=== PATIENT | male | born 1965 | race Caucasian/White ===

== ENCOUNTER 2016-10-10 07:49 | Emergency (ER) | payer OTHER ==
[2016-10-10 07:52] VITALS: BP 148/99; PULSE 85; RESP 20; TEMP 97.3
--- NOTE | 2016-10-10 08:15 | ED ---
General Adult HPI - General Chief complaint: ENT Stated complaint: throat pain Time Seen by Provider: 10/10/16 08:08 Source: patient, RN notes reviewed Mode of arrival: ambulatory Limitations: no limitations - History of Present Illness Initial comments: Patient is a 51-year-old male who presents emergency room today with a chief complaint of sore throat 3 days. Patient does admit that hurts when he swallows. He states he has felt somewhat run down when he is finding something off. Patient denies any other complaints or associated symptoms. Patient denies any recent fever, chills, shortness of breath, chest pain, back pain, abdominal pain, nausea or vomiting, numbness or tingling, dysuria or hematuria, constipation or diarrhea, headaches or visual changes, or any other complaints. - Related Data Previous Rx's Medication Instructions Recorded Cephalexin [Keflex] 500 mg PO Q6HR #20 cap 09/28/15 predniSONE 20 mg PO DAILY #3 tab 09/28/15 Allergies Allergy/AdvReac Type Severity Reaction Status Date / Time diclofenac potassium Allergy Itching Verified 10/10/16 07:52 [From Cataflam] Review of Systems ROS Statement: Those systems with pertinent positive or pertinent negative responses have been documented in the HPI. ROS Other: All systems not noted in ROS Statement are negative. Past Medical History Past Medical History: No Reported History History of Any Multi-Drug Resistant Organisms: None Reported Past Surgical History: Orthopedic Surgery Past Psychological History: No Psychological Hx Reported Smoking Status: Former smoker Past Alcohol Use History: Occasional Past Drug Use History: None Reported General Exam - General Exam Comments Initial Comments: General: The patient is awake and alert, in no distress, and does not appear acutely ill. Eye: Pupils are equal, round and reactive to light, extra-ocular movements are intact. No nystagmus. There is normal conjunctiva bilaterally. No signs of icterus. Ears, nose, mouth and throat: There are moist mucous membranes and no oral lesions. Increased redness erythema to the posterior pharynx. Uvula midline. Patient swallows without any difficulty. Neck: The neck is supple, there is no tenderness or JVD. Cardiovascular: There is a regular rate and rhythm. No murmur, rub or gallop is appreciated. Respiratory: Lungs are clear to auscultation, respirations are non-labored, breath sounds are equal. No wheezes, stridor, rales, or rhonchi. Musculoskeletal: Normal ROM, no tenderness. Strength 5/5. Sensation intact. Pulses equal bilaterally 2+. Neurological: A&O x 3. CN II-XII intact, There are no obvious motor or sensory deficits. Coordination appears grossly intact. Speech is normal. Skin: Skin is warm and dry and no rashes or lesions are noted. Psychiatric: Cooperative, appropriate mood & affect, normal judgment. Limitations: no limitations Course Vital Signs 10/10/16 07:51 Temperature 97.3 F L Pulse Rate 85 Respiratory 20 Rate Blood Pressure 148/99 O2 Sat by Pulse 96 Oximetry Medical Decision Making - Medical Decision Making Patient reexamined at this time shows no signs of distress. Resting comfortably in stretcher. His strep test is negative. Patient will be given a prescription for magic mouthwash for his symptoms. Advised follow-up family doctor return to emergency room if any symptoms increase or worsen. - Lab Data Lab Results 10/10/16 Range/Units 08:15 Group A Strep Rapid Negative (Negative) Disposition Clinical Impression: Acute pharyngitis Disposition: HOME SELF-CARE Condition: Good Instructions: Pharyngitis (ED) Additional Instructions: Please use medication as discussed. Please follow-up with family doctor in the next 2 days of symptoms have not improved. Please return to emergency room if the symptoms increase or worsen or for any other concerns. Referrals: Vasyl Greenberg DO [Primary Care Provider] - 1-2 days Time of Disposition: 08:55
== END 2016-10-10 09:08 | disposition home or self-care (01) ==
LOC: EC 07:49
DX: J02.9 Acute pharyngitis, unspecified (principal); Z87.891 Personal history of nicotine dependence; Z88.8 Allergy status to other drugs, medicaments and biological substances
CPT/HCPCS: 87081; 87430; 99283

== ENCOUNTER → 2016-11-04 | Outpatient (CLI) | payer OTHER ==
--- NOTE | 2016-11-04 11:24 | NM ---
EXAMINATION TYPE: NM stress cardiolite complete DATE OF EXAM: 11/04/2016 COMPARISON: 01/16/2010 HISTORY: TECHNIQUE: After the intravenous administration of 10.9 mCi Tc 99m Sestamibi - Rest images obtained 45 minutes post injection. The patient exercised using a JOSHUA protocol and 1 minute prior to peak exercise was injected with 30.0 mCi Tc 99m Sestamibi - Stress images obtained 30 minutes post injecti on. FINDINGS: Targeted heart rate was achieved during performance of the study. Review of stress and rest SPECT benito ges fixed defect involving the inferior wall the myocardium with associated wall motion abnormality. Gated analysis shows normal wall motion with an estimated left ventricular ejection fraction of 24 %. IMPRESSION: 1. Ejection fraction is 24% correlate clinically. 2. Findings suggest a fixed defect involving the inferior wall and anteroseptal portions of the myoca rdium.
--- NOTE | 2016-11-04 13:59 | EST ---
EXERCISE STRESS AGE:: 51 SEX:: M HT:: 6'3" WT:: 255 PROTOCOL:: CARDIOLITE STRESS TEST STAGE:: 3 DURATION OF EXERCISE:: 6:40 HEART RATE REST:: 101 BLOOD PRESSURE REST:: 133/78 MAXIMUM HEART RATE ACHIEVED:: 147 MAXIMUM BLOOD PRESSURE:: 195/76 85% MPHR:: 144 100% MPHR:: 169 METS:: 8.1 INDICATIONS:: Abnormal EKG. CLINICAL INFORMATION:: Baseline EKG revealed a sinus mechanism with short CO and possible WPW type picture with some IVCD. There was also nonspecific ST abnormality. Patient walked on a standard Wesley protocol for 6 minutes 40 seconds, achieved a maximal heart rate of 147 beats per minute which is more than 85% of predicted maximal. He developed fatigue, shortness of breath and discomfort in his knee but did not have angina. Patient continued to have the same appearance of the EKG. QRS remained wide, the CO. interval remained short and rare PVCs were noted. He did not have any angina and EKG remained inconclusive. By EKG criteria, this is an inconclusive stress test with limited exercise capacity. There were resting EKG changes to begin with making it an inconclusive stress test. If ischemia is suspected, he will probably benefit from a Lexiscan stress test. MMODL / IJN: [id number] /
== END | disposition home or self-care (01) ==
LOC: RADNMMAIN 08:53
PROVIDERS: ATTEND Family Medicine
DX: R94.31 Abnormal electrocardiogram [ECG] [EKG] (principal)
CPT/HCPCS: 93017; 78452; A9500

== ENCOUNTER → 2017-11-21 | Outpatient (CLI) | payer OTHER ==
--- NOTE | 2017-11-21 18:33 | XR ---
EXAMINATION TYPE: XR knee complete RT DATE OF EXAM: 11/21/2017 COMPARISON: 12/07/2010 HISTORY: Knee pain TECHNIQUE: 3 views FINDINGS: There is narrowing of the medial joint space. There is moderate spurring of the femoral and tibial condyles. There is spurring of the patella. There is no sign of joint effusion. IMPRESSION: Moderate osteoarthritis in the medial joint space with progression of joint space narrowi ng compared to old exam. No fracture.
== END | disposition home or self-care (01) ==
LOC: RADXRYALE 16:24
PROVIDERS: ATTEND Family Medicine
DX: M17.11 Unilateral primary osteoarthritis, right knee (principal); M25.861 Other specified joint disorders, right knee

== ENCOUNTER → 2019-04-27 | Outpatient (CLI) | payer OTHER ==
--- NOTE | 2019-04-27 15:12 | XR ---
EXAMINATION TYPE: XR chest 2V DATE OF EXAM: 04/27/2019 COMPARISON: Prior chest x-ray 02/05/2010, chest CT 09/24/2011 HISTORY: Redness of breath and cough TECHNIQUE: Frontal and lateral views of the chest are obtained. FINDINGS: Oval density with some central lucencies over the right lung apex thought to be anterior t o the chest cavity on the lateral view and may be artifact. No evident airspace disease, pneumothorax , or pleural effusion. There is thoracic spondylosis. Cardiomediastinal silhouette, pulmonary vascula rity and gelacio within normal limits. IMPRESSION: Suspect artifact is present. No acute cardiopulmonary disease.
== END | disposition home or self-care (01) ==
LOC: RADXRYALE 14:12
PROVIDERS: ATTEND Physician Assistant
DX: R05 Cough (principal); R06.02 Shortness of breath
CPT/HCPCS: 71046

== ENCOUNTER → 2020-03-12 | Outpatient (CLI) | payer OTHER ==
--- NOTE | 2020-03-12 09:22 | MR ---
EXAMINATION TYPE: MR knee RT wo con DATE OF EXAM: 03/12/2020 COMPARISON: X-ray 11/21/2017 HISTORY: Rt knee pain TECHNIQUE: Multiplanar, multisequence imaging of the right knee is performed without IV contrast. FINDINGS: There is near complete loss of joint space involving the medial compartment of knee joint with hypert rophic spurring. Similar findings involving the patellofemoral joint. There is pseudoextrusion of the medial meniscus with abnormal grade 3 signal compatible with tear involving the medial meniscus and body. There is loss of articular cartilage involving the articular tibia and medial femoral component as well as the patellofemoral joint compatible with grade III chondromalacia. There is a mixed signal structure in the soft tissues posterior to the medial femur measuring 2.1 x 1 .5 x 3.5 cm. There is intrasubstance signal seen in the anterior horn lateral meniscus most typical of myxoid dege neration marrow signal alteration involving the medial and lateral femur likely reactive and post art hritic. Patellar and quadriceps tendons intact. Small amount of fluid in the suprapatellar bursa with punctat e areas of high signal may be on the basis of tiny loose bodies. There appears to be tear of the anterior cruciate ligament. Posterior cruciate ligament intact. Grade 1 strain of the MCL. Lateral collateral ligament intact. IMPRESSION: 1. Severe osteoarthritis with the grade 3 chondromalacia involving the medial compartment of the knee joint and patellofemoral joint. 2. Pseudoextrusion of the medial meniscus with grade 1 MCL strain and complex posterior horn and body medial meniscal tear 3. ACL tear. 4. There is a mixed signal 2.1 x 3.5 cm soft tissue nodule along the medial femur posteriorly. No cor responding x-ray findings seen on the x-ray of 11/21/2017. Complicated popliteal fossa cyst containing loose bodies is the most likely etiology.
== END | disposition home or self-care (01) ==
LOC: RADMRIMAIN 08:07
PROVIDERS: ATTEND Physician Assistant
DX: S83.231A Complex tear of medial meniscus, current injury, right knee, initial encounter (principal); S83.512A Sprain of anterior cruciate ligament of left knee, initial encounter; M17.11 Unilateral primary osteoarthritis, right knee; M22.41 Chondromalacia patellae, right knee

== ENCOUNTER → 2021-01-30 | Outpatient (CLI) | payer OTHER | END | disposition home or self-care (01) | LOC: LABWHC1 16:00 | PROVIDERS: ATTEND Orthopaedic Surgery | DX: Z01.812 Encounter for preprocedural laboratory examination (principal) | CPT/HCPCS: 87070 ==

== ENCOUNTER 2021-02-09 05:36 | Day surgery (SDC) | payer OTHER ==
[2021-02-04 11:12] VITALS: BMI 30.6
[~2021-02-09 05:36] MED LIST: ACETAMINOPHEN TAB 500 MG TAB PO PRN; GABAPENTIN 300 MG CAP PO PRN; MELOXICAM 7.5 MG TAB PO PRN; TRANEXAMIC ACID 1,000 MG in SODIUM CHLORIDE 0.9% 100 ML IVPB PRN
[2021-02-09] MEDS ORDERED: LACTATED RINGERS 1,000 ML IV SCH (05:49)
[2021-02-09] MEDS ORDERED: ONDANSETRON 4 MG/2 ML VIAL IVP ONE (05:49)
[2021-02-09] MEDS ORDERED: LIDOCAINE 1% (10MG/ML) FOR IV START INTRADERMA PRN (05:49)
[2021-02-09] MEDS ORDERED: MIDAZOLAM 2 MG/2 ML VIAL IV PRN (05:49)
[2021-02-09] MEDS ORDERED: DEXAMETHASONE SOD PHOSPHATE 4 MG/ML 1 ML VIAL IV ONE (05:49)
[2021-02-09] MEDS ORDERED: fentaNYL (PF) 50 MCG/ML 5 ML AMP IVP ONE (06:47)
[2021-02-09] MEDS ORDERED: MIDAZOLAM 2 MG/2 ML VIAL IVP ONE (06:47)
[2021-02-09] MEDS ORDERED: .fentaNYL (PF) 50 MCG/ML 2 ML AMP ONE (07:00)
[2021-02-09] MEDS ORDERED: TRANEXAMIC ACID 1,000 MG/10 ML VIAL ONE (07:00)
[2021-02-09] MEDS ORDERED: ePHEDrine 50 MG/ML 1 ML AMP ONE (07:00)
[2021-02-09] MEDS ORDERED: MIDAZOLAM 2 MG/2 ML VIAL ONE (07:00)
[2021-02-09] MEDS ORDERED: LIDOCAINE 1% INJ 10MG/ML (20 ML MDV) ONE (07:00)
[2021-02-09] MEDS ORDERED: ROPIVACAINE 5 MG/ML 30 ML VIAL ONE (07:00)
[2021-02-09] MEDS ORDERED: SODIUM CHLORIDE 0.9% 100 ML BAG ONE (07:00)
[2021-02-09] MEDS ORDERED: ROCURONIUM 10 MG/ML (5 ML VIAL) IV ONE (07:00)
[2021-02-09] MEDS ORDERED: SODIUM CHLORIDE 0.9% (PF) 10 ML VIAL ONE (07:00)
[2021-02-09] MEDS ORDERED: PHENYLEPHRINE-0.9% NACL SYG 1,000 MCG/10 ML SYRINGE ONE (07:00)
[2021-02-09] MEDS ORDERED: SUCCINYLCHOLINE CHLORIDE 100 MG/5 ML SYR IV ONE (07:00)
[2021-02-09] MEDS ORDERED: DEXAMETHASONE SOD PHOSPHATE 4 MG/ML 1 ML VIAL ONE (07:00)
[2021-02-09] MEDS ORDERED: PROPOFOL 10 MG/ML 20 ML VIAL IV ONE (07:00)
[2021-02-09] MEDS ORDERED: HYDROmorphone 1 MG/ML 1 ML SYRINGE IVP PRN (07:01)
[2021-02-09] MEDS ORDERED: ONDANSETRON 4 MG/2 ML VIAL IVP PRN (07:01)
[2021-02-09] MEDS ORDERED: HYDROmorphone 0.2 MG/1 ML SYRINGE IVP PRN (07:01)
[2021-02-09] MEDS ORDERED: NALOXONE 0.4 MG/ML 1 ML VIAL IV PRN (07:01)
[2021-02-09] MEDS ORDERED: HYDROmorphone 0.5 MG/0.5 ML SYRINGE IVP PRN (07:01)
[2021-02-09] MEDS ORDERED: HYDROcodone/APAP 7.5-325MG 1 EACH TAB PO PRN ×2 (07:03)
[2021-02-09] MEDS ORDERED: ceFAZolin 1,000 MG in SODIUM CHLORIDE 0.9% 1,000 ML IRRIGATION ONE (07:07)
[2021-02-09] MEDS ORDERED: SODIUM CHLORIDE 0.9% 1,000 ML IV SCH (07:15)
[2021-02-09] MEDS ORDERED: LACTATED RINGERS 1,000 ML IV ONE (08:13)
--- NOTE | 2021-02-09 08:44 | P.OP ---
Date of Procedure: 02/09/21 Preoperative Diagnosis: Severe osteoarthritis right knee Postoperative Diagnosis: Severe osteoarthritis right knee Procedure(s) Performed: Right total knee arthroplasty Implants: James [employer] Nephew Journey II CR Oxinium cruciate retaining femoral component size 7, right [employer] Journey nonporous tibial baseplate size 7, right [employer] Journey II, XLPE CR articular insert, size 9 mm, Size 7-8, right [employer] Journey Nica II resurfacing patellar component, oval, 32 mm All components were cemented using Palacos R bone cement The articulation is Oxinium on polyethylene Anesthesia: GETA Surgeon: Vasyl Tan [employer]inery Set Up Mechanic #1: Celine Lawrence Estimated Blood Loss (ml): 50 Pathology: other (Bone and cartilage) Condition: stable Disposition: PACU Indications for Procedure: After failure of conservative treatment we discussed the surgical and nonsurgical treatment options at length. Patient wishes to proceed with a total knee arthroplasty. Complications specific to this procedure were discussed at length, including but not limited to infection, bleeding, stiffness, and nerve injury. Covid-19 was also discussed at length with the patient, and they are aware of the current policies and procedures. The patient was given the option of delaying surgery, but they elect to proceed knowing these risks. Patient is aware of all these complications and informed consent was obtained Operative Findings: The operative findings are consistent with severe osteoarthritis of the right knee Description of Procedure: Patient was seen in the preoperative area and the consent was reviewed and the operative site was marked with a skin marker. The patient verified the procedure and the operative site. An adductor canal pain catheter was placed by anesthesia in the preoperative area. The patient was then brought to the operating room and given preoperative antibiotics intravenously. A gram of transexamic acid was given intravenously. A general anesthetic was administered by the anesthesia department. A tourniquet was placed on the upper thigh and the lower extremity was prepped with chlorhexidine and draped in usual sterile fashion. A universal timeout was then performed which confirmed the patient's name, surgical site, ALLERGIES, and consent. The lower extremity was then exsanguinated and tourniquet was inflated to 250 mmHg. A standard anterior midline approach to the knee was performed. The skin and subcutaneous tissue were sharply dissected down to the patellar tendon. A medial parapatellar arthrotomy was then performed. The knee was then extended, the patellar was everted, and the knee was again flexed. The infra-patellar fat pad was removed in order to enhance exposure. The anterior horns of both me nisci were excised, and a release was performed to the posterior medial aspect of the knee. On gross visual inspection, there was complete loss of articular cartilage in the medial and patellofemoral joint spaces. There was also significant cartilage damage in the lateral compartment. There were multiple periarticular osteophytes globally about the knee which were then removed with a Ronguer. The femoral canal was then opened with the 9.5 mm intramedullary drill. The 8 mm intramedullary padilla was then inserted into the femoral canal with the distal femoral cutting guide set for 5 of valgus. The distal femoral cutting block was then pinned in place. The intramedullary padilla was then removed, and the distal femur was then cut. The cutting block was then removed and the cut was checked for symmetry. The resected bone was then measured to confirm the appropriate distal femoral resection. Next, the sizing guide was then placed and set for 3 external rotation based off of the epicondylar axis and Whitesides line. Pins were then placed and the drill holes, and the femur was sized with the sizing stylus. The pins were then removed, and the sizing guide was then removed. The spikes of the femoral block was then placed into the predrilled holes, and malleted into place. Two 45 mm pins were then placed into the fixation holes on the cutting block. An thaddeus wing was then used to ensure there would be no notching with the anterior cut. The anterior condyles were cut without notching. The anterior chord cut was then performed, followed by the posterior cut, posterior chamfer cut, and the anterior chamfer cut. The collateral ligaments were protected during the entire process. The cutting block was then removed. Any remaining bone and osteophytes were removed from the femur with a Rominger. The femoral canal was plugged with autologous bone. Attention was then directed to the tibia. The remaining ACL was removed with a Ronguer, and the tibia was then gently subluxed forward with a large bent knee retractor. Any remaining menisci were excised. The posterior lateral corner was cauterized in order to coagulate the lateral geniculate artery. The extra medullary tibial cutting guide was then placed, set for the appropriate rotation, slope, and depth of resection. The proximal tibia cutting guide was then pinned in place. Proximal tibia was then cut and sized. The femoral trial was placed. A narrow saw blade was then used to remove the anterior intracondylar femoral bone. The CR notch trial was then placed. The tibial trial was placed with the appropriate-sized insert. The knee was able to fully extend and flex to 130 and was stable throughout all range of motion. The knee was then extended and the patella was everted. Patella was then measured, and then using an osteotomy guide, the patella was cut at the appropriate level. The patella was then measured and drilled and the patella trial was then placed. The knee was then taken through range of motion with the patella trial and the patella tracked normally using the no thumbs technique.. The knee was then extended patella trial was then removed and the patella was everted. Knee was then flexed and lug holes were drilled through the femoral trial and the femoral trial was then removed. The tibial was then re-exposed, and the tibial broach guide was then pinned in place after it was set for the appropriate rotation to allow for the most coverage without overhang. The tibia was then reamed and broached. The cut surfaces of bone were then irrigated with pulsatile lavage. The knee was also irrigated with Irrisept solution. The components were then opened, the cement was mixed, and the components were then cemented in place. The cement was allowed to harden with the knee in full extension. After the cemented hardened. The tourniquet was released, and hemostasis was obtained. A second gram of transexamic acid was given intravenously. The knee was again irrigated. The knee was again taken through range of motion and found to be stable throughout all range of motion of 0-130, and the patella tracked normally. The fascia was then closed with 0 Vicryl followed by #2 strata fix suture. The subcutaneous tissue was closed with 3-0 Vicryl and 3-0 strata fix. Exofin glue was used for the skin and placed with the knee in flexion. After the glue had dried, and Optafoam silver impregnated dressing was applied. The patient was then transferred to recovery room in stable condition. The executive chef assistant RELL Guillermo was required due the complexity surgery and the need for a skilled surgical clinical reviewer. She assisted in positioning, draping, retraction, and closure of the wound.
[2021-02-09] MEDS ORDERED: ROPIVACAINE 0.2%-NS ON-Q PUMP 1,090 MG, EMPTY PAIN BALL 1 EACH MISCELLANE PRN (08:52)
[2021-02-09 08:57] VITALS: TEMP 97.1
[2021-02-09] MEDS: HYDROmorphone 0.5 MG/0.5 ML SYRINGE IVP PRN ×2 (09:18→09:30)
--- NOTE | 2021-02-09 09:40 | XR ---
Right knee Limited HISTORY: Status post right knee arthroplasty 2 views the right knee Patient is status post right knee arthroplasty. There is anatomic alignment. Lucency is present in th e soft tissues. IMPRESSION: Orthopedic follow-up.
[2021-02-09 10:53] VITALS: BP 131/74; PULSE 78; RESP 18
--- NOTE | 2021-02-09 16:24 | P.ANPRN ---
Procedure Note - Anesthesia - Nerve Block Performed Right Adductor Canal Infusion Time Out Performed: Yes Date of Procedure: 02/09/21 Procedure Start Time: 06:39 Procedure Stop Time: 06:49 Location of Patient: PreOp Indication: Acute Post-Operative Pain, Dx/Pain Location, Requested by Surgeon Specifically requested for management of pain by : Vasyl Tan Sedation Type: Sedate with meaningful contact maintained Preparation: Sterile Prep, Sterile Dressing Position: Supine Catheter: Indwelling Needle Types: Pajunk Needle Gauge: 20 Ultrasound used to visualize needle placement: Yes Ultrasound used to observe medication spread: Yes Injectate: 0.5% Ropivacaine (see comment for volume) Blood Aspirated: No Pain Paresthesia on Injection Noted: No Resistance on Injection: Normal Image Stored and Saved: Yes Events: Uneventful and Well Tolerated (20cc 0.5% Ropivacaine)
--- NOTE | 2021-02-09 16:25 | P.ANPRN ---
Procedure Note - Anesthesia - Nerve Block Performed Right Miriam Single Time Out Performed: Yes Date of Procedure: 02/09/21 Procedure Start Time: 06:50 Procedure Stop Time: 06:55 Location of Patient: PreOp Indication: Acute Post-Operative Pain, Dx/Pain Location, Requested by Surgeon Specifically requested for management of pain by DrJulieth: Vasyl Tan Sedation Type: Sedate with meaningful contact maintained Preparation: Sterile Prep Position: Supine Catheter: None Needle Types: GoLocal24 Needle Gauge: 20 Ultrasound used to visualize needle placement: Yes Ultrasound used to observe medication spread: Yes Injectate: 0.5% Ropivacaine (see comment for volume) Blood Aspirated: No Pain Paresthesia on Injection Noted: No Resistance on Injection: Normal Image Stored and Saved: Yes Events: Uneventful and Well Tolerated (10cc 0.5% Ropivacaine)
== END 2021-02-09 12:40 | disposition home or self-care (01) ==
LOC: OR 05:36
PROVIDERS: ATTEND Orthopaedic Surgery
DX: M17.11 Unilateral primary osteoarthritis, right knee (principal); I11.0 Hypertensive heart disease with heart failure; I50.22 Chronic systolic (congestive) heart failure; R00.2 Palpitations; I42.8 Other cardiomyopathies; Z97.3 Presence of spectacles and contact lenses; Z87.891 Personal history of nicotine dependence; Z79.1 Long term (current) use of non-steroidal anti-inflammatories (NSAID); Z79.899 Other long term (current) drug therapy; Z79.82 Long term (current) use of aspirin; Z88.6 Allergy status to analgesic agent; E78.2 Mixed hyperlipidemia
CPT/HCPCS: 97110; 97161; 64999; 64448; 76942; 88300; 73560; 27447; C1713; C1776; J2250; J1100; J0690 ×2; J2405; J2001; J3010 ×2; J2795 ×2; J2370; J0330; J2704; J1170

== ENCOUNTER 2021-12-02 07:55 | Day surgery (SDC) | payer OTHER ==
[~2021-12-02 07:55] MED LIST changes: -ACETAMINOPHEN TAB 500 MG TAB PO PRN; -GABAPENTIN 300 MG CAP PO PRN; +LACTATED RINGERS 1,000 ML IV SCH; +LIDOCAINE 1% (10MG/ML) FOR IV START INTRADERMA PRN; -MELOXICAM 7.5 MG TAB PO PRN; -TRANEXAMIC ACID 1,000 MG in SODIUM CHLORIDE 0.9% 100 ML IVPB PRN
[2021-12-02 08:18] VITALS: PULSE 72; TEMP 97
[2021-12-02] MEDS ORDERED: PROPOFOL 10 MG/ML 20 ML VIAL IV ONE (08:45)
[2021-12-02] MEDS ORDERED: LIDOCAINE 2% INJ 20 MG/ML (2 ML VIAL) ONE (08:45)
--- NOTE | 2021-12-02 09:15 | P.PCN ---
Date of Procedure: 12/02/21 Procedure(s) Performed: Brief history: Patient is a pleasant 56-year-old white male scheduled for an elective upper endoscopy as well as colonoscopy as a part of evaluation of epigastric pain and screening for colon cancer Procedure performed: Esophagogastroduodenoscopy with biopsy Colonoscopy with biopsy Preoperative diagnosis: Epigastric pain and screening for colon cancer Anesthesia: MAC Procedure: After informed consent was obtained from the patient was brought into the endoscopy unit and IV sedation was administered by anesthesia under continuous monitoring. Initially upper endoscopy was done. The Olympus GF 160 video endoscope was inserted inserted into the mouth and esophagus intubated without any difficulty and was gradually advanced into the stomach and duodenum and carefully examined. The bulbhad a superficial 1 cm ulcer with no active bleeding and second part of the duodenum appeared normal. The scope was then withdrawn into the stomach adequately insufflated with air and upon careful examination the antrum had scattered erosions and a 5 mm superficial antral ulcer which was biopsied. Mucosa of the d body, cardia and fundus appeared normal. The scope was then withdrawn into the esophagus. The GE junction was located at 40 cm to the incisors. It appeared regular with no erythema erosions or ulcerations. Rest of the esophagus appeared normal. Patient tolerated the procedure well. At this time the patient continued to remain sedation. Initial digital rectal examination was normal. Olympus CF 160 video colonoscope was then inserted into the rectum and gradually advanced to the cecum without any difficulty. Careful examination was performed as the scope was gradually being withdrawn. The prep was excellent. The cecum, ascending colon, appeared normal. The transverse colon there was a 3 mm polyp that was removed by cold biopsy. Rest of the sandoval sverse colon, descending colon, sigmoid colon and rectum appeared normal. Retroflexion was performed in the rectum and no lesions were noted. Patient tolerated the procedure well. Impression: 1.Upper endoscopy revealed a 1 cm superficial duodenal bulbar ulcer, 5 mm antral ulcer and antral erosive gastritis 2.Colonoscopy revealed a 3 mm transverse colon polyp status post cold biopsy Recommendations: Findings of this examination were discussed with the patient as well asHis family. He was advised to follow with the biopsy results. If the biopsy reveals adenoma she can have a repeat colonoscopy in 5 years. He'll be started on omeprazole 40 mg daily and was briefly educated about avoiding NSAIDs.
[2021-12-02 09:39] VITALS: BP 143/90; RESP 16
== END 2021-12-02 10:00 | disposition home or self-care (01) ==
LOC: ORWHC2ENDO 07:55
PROVIDERS: ATTEND Internal Medicine Gastroenterology
DX: Z12.11 Encounter for screening for malignant neoplasm of colon (principal); K29.50 Unspecified chronic gastritis without bleeding; K51.40 Inflammatory polyps of colon without complications; K26.9 Duodenal ulcer, unspecified as acute or chronic, without hemorrhage or perforation
CPT/HCPCS: 88305; 45380; 43239; J2704; J2001

== ENCOUNTER → 2022-01-27 | Outpatient (CLI) | payer OTHER ==
--- NOTE | 2022-01-28 07:30 | XR ---
EXAMINATION TYPE: XR toes RT DATE OF EXAM: 01/27/2022 COMPARISON: NONE HISTORY: First toe pain on and off for one year. TECHNIQUE: Frontal and lateral views right first toe. FINDINGS: Severe narrowing first metatarsophalangeal joint with moderate peripheral spurring and join t space sclerosis. Mild narrowing first interphalangeal joint. No acute displaced fracture. Overlying soft tissue unremarkable. Incidental Landers's toe noted. IMPRESSION: As above.
== END | disposition home or self-care (01) ==
LOC: RADXRYALE 15:21
PROVIDERS: ATTEND Physician Assistant
DX: M19.071 Primary osteoarthritis, right ankle and foot (principal)

== ENCOUNTER → 2022-03-24 | Outpatient (CLI) | payer OTHER ==
--- NOTE | 2022-03-24 16:10 | XR ---
EXAMINATION TYPE: XR wrist complete RT, XR elbow complete RT, XR shoulder complete RT DATE OF EXAM: 03/24/2022 CLINICAL HISTORY: Pain shooting into wrist after fall over dog last night TECHNIQUE: Frontal, lateral and oblique images of the right wrist, frontal, lateral, and oblique im ages of the right wrist, and AP, Grashey, and scapular views of the right shoulder were obtained. COMPARISON: None. FINDINGS: There is a linear lucency at the ulnar styloid. There is no overlying soft tissue swelling. Otherwise , there is no evidence of fracture or dislocation in the right wrist. There are mild scattered degene rative changes for instance at the first carpal metacarpal joint and almost all of the visualized pro ximal and distal interphalangeal joints. There appears to be a slight impaction fracture of the proximal radial metaphysis. The elbow is other harris unremarkable and there is no joint effusion. There is no acute fracture or dislocation of the right shoulder. No rib fractures. Visualized lung is unremarkable. IMPRESSION: 1. There appears to be a slight impaction fracture of the proximal radial metaphysis. 2. Lucency at the ulnar styloid could relate to a nondisplaced fracture, although there is no overlyi ng soft tissue swelling. Correlate for point tenderness. 3. No acute fracture or dislocation of the right shoulder.
== END | disposition home or self-care (01) ==
LOC: RADXRYALE 10:06
PROVIDERS: ATTEND Physician Assistant
DX: M79.601 Pain in right arm (principal); M25.511 Pain in right shoulder

== ENCOUNTER 2024-01-24 11:50 | Day surgery (SDC) | payer OTHER ==
[2024-01-20 13:46] VITALS: BMI 26.2
[2024-01-24] MEDS: IV FLUID CONTINUATION 1,000 ML IV ONE (12:00)
[2024-01-24] MEDS: SODIUM CHLORIDE 0.9% 1,000 ML IV SCH ×2 (12:18→21:10)
[2024-01-24] MEDS ORDERED: MIDAZOLAM 2 MG/2 ML VIAL ONE (16:48)
[2024-01-24] MEDS ORDERED: HYDROmorphone (PF) 1 MG/ML ONE (16:48)
[2024-01-24] MEDS ORDERED: PROPOFOL 10 MG/ML 20 ML VIAL IV ONE (16:48)
[2024-01-24] MEDS ORDERED: KETAMINE HCL IN 0.9 % NACL 50 MG/5 ML SYRINGE ONE (16:48)
[2024-01-24] MEDS ORDERED: diphenhydrAMINE 50 MG/ML 1 ML VIAL ONE (16:48)
[2024-01-24] MEDS ORDERED: fentaNYL (PF) 50 MCG/ML 2 ML AMP ONE (16:48)
[2024-01-24] MEDS: ceFAZolin 1 GM in SODIUM CHLORIDE 0.9% IRRIG BTL 250 ML IRRIGATION PRN (17:28)
[2024-01-24] MEDS: HEPARIN SODIUM,PORCINE (1 ML) 2,500 UNIT in SODIUM CHLORIDE 0.9% 250 ML IRRIGATION ONE (17:28)
[2024-01-24] MEDS: ROPIVACAINE 5 MG/ML 30 ML VIAL MISCELLANE ONE (17:33)
[2024-01-24] MEDS: LIDOCAINE 1% INJ 10MG/ML (20 ML MDV) SQ ONE ×2 (17:33)
--- NOTE | 2024-01-24 19:33 | P.EPPROC ---
- EP Procedure Note Electrophysiology Procedure Note: Diagnosis Cardiomyopathy, chronic, nonischemic Congestive heart failure [place] [employer] class class II Wide QRS left bundle branch block with a QRS width 170 ms On guide line directed medical treatment for greater than 3 months Procedure: Biventricular ICD implantation for management of risk of sudden cardiac and congestive heart failure left upper extremity venogram Result: Successful biventricular ICD implantation, Atrial lead: Medtronic screw-in lead right atrial appendage, 52 cm in length P waves 2.3 mV pacing pins 551 ohms and pacing threshold 0.8 V at 0.4 ms Terminal test negative RV ICD lead: Medtronic screw-in lead in the RV apex. 62 cm in length R waves 7 to 9 mV, pacing impedance 760 ohms and pacing threshold 0.5 V at 0.4 ms 10 V test negative High-voltage impedance 78 ohms Left ventricular lead: Left bundle pacing. Medtronic model #3830-lead screwed in the RV septum. QR pattern with stimulus-V6 peak at 91 ms Pacing impedance 855 ohms, pacing threshold 0.5 V at 0.4 ms Procedure details: Patient was brought to the EP lab in a fasting state. Written informed consent was obtained prior to the procedure. Options, pros and cons, benefits and risks and complications discussed with patient in detail prior to the procedure (shared decision making) previously. Importance of continuing medical treatment emphasized previously. Alternatives discussed previously. Left upper extremity venogram performed. 15 mL IV dye injected in the left arm. Patent axillary/subclavian vein The left pectoral area was prepped and draped as a protocol. IV antibiotics administered 1% lidocaine was used for local anesthesia. A 4 cm incision was made parallel to the deltopectoral groove, about 1.5 cm medial to it. The incision was carried down to the level of the pectoralis muscle and the subfascial pocket was made. Hemostasis was assured. The axillary vein access was obtained. Appropriately sized into to see sheaths were placed. ICD lead implanted in the right ventricle and screwed in. ICD lead tested for threshold, sensing, impedances and tested with high output pacing for diaphragmatic stimulation. Negative diaphragmatic stimulation Atrial lead placed in the right atrial appendage and tested for threshold, sensing, impedance, and tested with high output pacing. Phrenic nerve stimulation negative Conduction system pacing lead placement: Left bundle lead placed through the RV septum. QR pattern. Stimulus-peak of V6 91 ms, stable. Excellent thresholds Leads secured to the underlying pectoral muscle after removing sheaths . Pocket irrigated with antibiotic solution. Antibiotic pouch placed Leads connected to the biventricular ICD generator. Wound closed in 3 layers and dressed per protocol Biventricular ICD interrogated and programmed. Appropriate pacing parameters, antitachycardia therapies with antitachycardia pacing cardioversion defibrillations programmed. AV delay and biventricular pacing parameters programmed to achieve optimal physiologic pacing Patient tolerated the procedure well without any acute complications. See scanned device report in EMR for lead details, [employer] [facility]-D cobalt XT heart failure MRI DF 4
[2024-01-24 20:52] LABS: Basophils % (A) 1 %; Eosinophils # (A) 0.1 k/uL (0-0.7); Eosinophils % (A) 2 %; HCT 51.8 % (39.0-53.0); HGB 17.4 gm/dL (13.0-17.5); Lymphocytes % (A) 23 %; MCH 31.4 pg (25.0-35.0); MCHC 33.6 g/dL (31.0-37.0); MCV 93.7 fL (80.0-100.0); Monocytes # (A) 0.4 k/uL (0-1.0); Monocytes % (A) 5 %; Neutrophils # (A) 5.9 k/uL (1.3-7.7); Neutrophils % (A) 69 %; Platelet Count 177 k/uL (150-450); RBC 5.53 m/uL (4.30-5.90); RDW 12.4 % (11.5-15.5); WBC 8.5 k/uL (3.8-10.6)
[2024-01-24 21:01] LABS: African American GFR (CKD) >90 (>60 ml/min/1.73 sqM); Anion Gap 8 mmol/L; Blood Urea Nitrogen 14 mg/dL (9-20); Calcium 8.9 mg/dL (8.4-10.2); Carbon Dioxide 20 mmol/L (22-30); Chloride 110 mmol/L (98-107); Glucose 133 mg/dL (74-99); Non-African American GFR(CKD) >90 (>60 ml/min/1.73 sqM); Potassium 3.6 mmol/L (3.5-5.1); Sodium 138 mmol/L (137-145)
[2024-01-24] MEDS: ATORVASTATIN 40 MG TAB PO SCH (21:47)
[2024-01-24] MEDS: carvediloL 12.5 MG TAB PO SCH (21:47)
[2024-01-24] MEDS: ASPIRIN 81 MG PO SCH (21:47)
[2024-01-24] MEDS: SACUBITRIL/VALSARTAN 49 MG-51 MG TABLET PO SCH (21:47)
[2024-01-24] MEDS: ACETAMINOPHEN IV (For NPO) 1,000 MG in EMPTY BAG 1 BAG IVPB ONE (21:54)
[2024-01-25 07:27] VITALS: BP 109/70; PULSE 68; RESP 15; TEMP 97.8
--- NOTE | 2024-01-25 07:33 | XR ---
EXAMINATION TYPE: XR chest 2V DATE OF EXAM: 01/25/2024 COMPARISON: NONE CLINICAL INDICATION: Male, 58 years old with history of Lead placement check; , TECHNIQUE: XR chest 2V views of the chest. FINDINGS: The lungs are clear and there is no pneumothorax, pleural effusion, or focal pneumonia. Heart size normal and no overt failure. Osseous structures demonstrate degenerative changes. Cardiac device posi tion the proximal lead overlying the right atrium and 2 additional lesions likely representing bivent ricular leads. Biapical pleural thickening. Linear changes along the lateral margin of the right uppe r lobe. Lung markings are seen distal with no definite pneumothorax. Could represent an area of linea r atelectasis or scarring follow-up x-ray recommended IMPRESSION: 1. No acute process. [facility], , 01/25/2024 7:31 AM
--- NOTE | 2024-01-25 08:22 | P.DS ---
Providers Attending physician: Contreras Salcido Primary care physician: [facility] Course: Patient is resting comfortably in bed. No hematoma no swelling minimal tenderness Heart sounds are normal Breath sounds are clear No chest pain no dizziness no lightheadedness Impression nonischemic cardiomyopathy with a left bundle branch block with a QRS width of 160 ms Status post biventricular ICD implantation with left bundle pacing Short AR interval there is precluding development of a left bundle paced rhythm Suggest Add digoxin 0.125 mg p.o. daily to current regimen and continue carvedilol 25 mg twice daily If his twelve-lead EKG after 2 weeks still shows a left bundle paced pattern then I would recommend switching to high-dose Toprol-XL 200 mg p.o. daily to prolong the AR interval to allow for complete left bundle pacing for management of heart failure Plan - Discharge Summary Discharge Rx Participant: No New Discharge Prescriptions: Continue Spironolactone [Aldactone] 12.5 mg PO DAILY Sacubitril/Valsartan [Entresto 49 mg-51 mg Tablet] 1 each PO BID Atorvastatin [Lipitor] 40 mg PO HS carvediloL [Coreg] 25 mg PO BID Aspirin [Adult Low Dose Aspirin EC] 81 mg PO HS Empagliflozin [Jardiance] 10 mg PO DAILY Discharge Medication List Aspirin [Adult Low Dose Aspirin EC] 81 mg PO HS 02/04/21 [History] Sacubitril/Valsartan [Entresto 49 mg-51 mg Tablet] 1 each PO BID 02/04/21 [History] Spironolactone [Aldactone] 12.5 mg PO DAILY 02/04/21 [History] carvediloL [Coreg] 25 mg PO BID 02/04/21 [History] Atorvastatin [Lipitor] 40 mg PO HS 12/01/21 [History] Empagliflozin [Jardiance] 10 mg PO DAILY 01/20/24 [History] Follow up Appointment(s)/Referral(s): Contreras Salcido MD [STAFF PHYSICIAN] - 02/02/24 3:30 pm Patient Instructions/Handouts: Moderate Sedation (DC), Implantable Cardioverter Defibrillator (DC) Activity/Diet/Wound Care/Special Instructions: PATIENT EDUCATION MATERIAL Instructions following a heart rhythm device implant. 1. Keep dressing DRY for 5 DAYS. You may cover the area with Saran or Cling Wrap, prior to a shower. 2. The dressing will be removed in the [facility] at [facility]. Absorbable sutures were used to close the wound. 3. Avoid raising the left arm above the shoulder level. 4 week restriction 4. Avoid arm movements, like backscratching, rubbing the head, or pulling on a cord. 4 weeks restriction 5. Gentle range of motion movements of the shoulder, closest to the incision should be performed to avoid a frozen shoulder. (Pendulum exercises of the shoulder) 6. The opposite arm may be used freely. 7. Avoid driving for 7 days. 8. Avoid activities such as golfing, swimming, weed whacking, lifting more than 10 pounds weight, bowling, gymnastics and weight training/lifting. (6 weeks restriction) 9. Activities such as wood chopping with an axe, pull-ups in the gymnasium, power lifting, arc-welding, being close to home induction cooktops will always be a problem. 10. Arm sling is only a reminder not to raise the arm above the head. You do not need to keep the arm completely immobilized. Your free to move the arm and use it and for normal activities. In case of any problems, please call [facility], @ [phone], Attention: Device Clinic Device clinic follow-up in 5 days Follow-up with primary compounding technician in 2-3 months
[2024-01-25] MEDS: SPIRONOLACTONE 25 MG TAB PO SCH (08:25)
[2024-01-25] MEDS: ACETAMINOPHEN TAB 325 MG TAB PO PRN (08:25)
[2024-01-25] MEDS: DAPAGLIFLOZIN PROPANEDIOL 5 MG TABLET PO SCH (08:26)
== END 2024-01-25 10:38 | disposition home or self-care (01) ==
LOC: CATHEP 11:50 → 6NMEDSUR 19:20 → CATHEP 01-25 10:38
PROVIDERS: ATTEND Internal Medicine Clinical Cardiac Electrophysiology
DX: Z45.02 Encounter for adjustment and management of automatic implantable cardiac defibrillator (principal); I42.8 Other cardiomyopathies; I44.7 Left bundle-branch block, unspecified; I25.10 Atherosclerotic heart disease of native coronary artery without angina pectoris; I50.20 Unspecified systolic (congestive) heart failure; Z79.82 Long term (current) use of aspirin; Z79.84 Long term (current) use of oral hypoglycemic drugs; Z79.899 Other long term (current) drug therapy; Z88.6 Allergy status to analgesic agent; Z88.8 Allergy status to other drugs, medicaments and biological substances
CPT/HCPCS: 33225; 33249; 80048; 85025; 71046; C1898; C1895; C1882; J2250; J1200; J1644; J0690 ×2; J2003; J3010; J1171; J2795; J2704